=== PATIENT | female | born 1960 | race Caucasian/White ===

== ENCOUNTER 2016-12-10 15:49 | Emergency (ER) | payer OTHER ==
[~2016-12-10] VITALS: Ht 170.2 cm; Wt 81.8 kg
[2016-12-10] MEDS ORDERED: INDOMETHACIN50 MG PO (18:02)
[2016-12-10] MEDS ORDERED: PERCOCET 5/31 TABLET PO (18:02)
[2016-12-10 18:22] VITALS: BP 148/88
== END 2016-12-10 18:29 | disposition home or self-care (01) ==
LOC: EME 15:49
DX: M25.462 Effusion, left knee (principal); M17.12 Unilateral primary osteoarthritis, left knee
CPT/HCPCS: 73564; 99281; 99285; J7512

== ENCOUNTER 2017-11-28 19:40 | Emergency (ER) | payer OTHER ==
[~2017-11-28] VITALS: Ht 167.6 cm; Wt 77.0 kg
[~2017-11-28 19:40] MED LIST: INDOMETHACIN50 MG PO; PERCOCET 5/31 TABLET PO
[2017-11-28 20:14] LABS: HEMATOCRIT 42.4 % (36.0-46.0); HEMOGLOBIN 15.1 G/DL (11.9-15.5); MCHC 35.6 G/DL (30.0-36.0); MCV 101.2 FL (83-99); PLATELET COUNT 226 K/uL (156-360); RBC DIS.WIDTH-CV 13.3 % (11.8-14.6); RBC DIS.WIDTH-SD 49.8 % (39-53); RED BLOOD COUNT 4.19 M/uL (3.80-5.20); WHITE BLOOD COUNT 9.2 K/uL (4.1-10.2)
[2017-11-28 20:22] LABS: CHLORIDE 104 mEq/L (99-109); POTASSIUM 3.2 mEq/L (3.7-5.4); SODIUM 141 mEq/L (136-147)
[2017-11-28 20:24] LABS: GLUCOSE 137 mg/dL (70-99)
[2017-11-28 20:27] LABS: SERUM ETHYL ALCOHOL 270 mg/dL
[2017-11-28 20:28] LABS: CREATININE 0.8 mg/dL (0.6-1.3); GFR ESTIMATE (CALCULATED) > 59 mL/min/
[2017-11-28 20:29] LABS: UREA NITROGEN (BUN) 5 mg/dL (9-23)
[2017-11-28 21:13] LABS: AMPHETAMINE NEGATIVE (500 ng/mL); BARBITURATES NEGATIVE (200 ng/mL); BENZODIAZEPINES NEGATIVE (150 ng/mL); BUPRENORPHINE NEGATIVE (10 ng/mL); COCAINE NEGATIVE (150 ng/mL); METHADONE NEGATIVE (200 ng/mL); METHAMPHETAMINE NEGATIVE (500 ng/mL); OPIATES (MORPHINE) NEGATIVE (100 ng/mL); OXYCODONE NEGATIVE (100 ng/mL); PHENCYCLIDINE NEGATIVE (25 ng/mL); PROPOXYPHENE NEGATIVE (300 ng/mL); THC CANNABINOIDS NEGATIVE (50 ng/mL); TRICYCLIC ANTIDEPRESSANTS NEGATIVE (300 ng/mL)
[2017-11-29 03:24] VITALS: BP 185/95
== END 2017-11-29 03:25 | disposition home or self-care (01) ==
LOC: EME → EDBD 19:40 → EME 19:40
DX: F32.9 Major depressive disorder, single episode, unspecified (principal); F10.10 Alcohol abuse, uncomplicated; F41.9 Anxiety disorder, unspecified; I10 Essential (primary) hypertension; M06.9 Rheumatoid arthritis, unspecified; F17.200 Nicotine dependence, unspecified, uncomplicated; Z88.5 Allergy status to narcotic agent
CPT/HCPCS: 80048; 85027; 90837; 99281; 99285; G0480